=== PATIENT | female | born 1985 | race Caucasian/White ===

== ENCOUNTER 2018-01-26 07:30 | Inpatient (IN) | payer OTHER ==
[2018-01-26 08:32] LABS: HEMATOCRIT 36.1 % (36.0-47.0); MEAN CORPUSCULAR HEMOGLOBIN 30.8 pg (27.0-33.0); MEAN CORPUSCULAR HGB CONC 33.2 g/dl (32.0-36.5); MEAN CORPUSCULAR VOLUME 92.8 fl (80.0-96.0); PLATELET COUNT, AUTOMATED 193 10^3/uL (150-450); RED BLOOD COUNT 3.89 10^6/uL (4.00-5.40); RED CELL DISTRIBUTION WIDTH 13.7 % (11.5-14.5); WHITE BLOOD COUNT 13.4 10^3/uL (4.0-10.0)
[2018-01-26] MEDS: LACTATED RINGER'S 1000 ML IV (09:15)
[2018-01-26] MEDS: LR 1,000 ML IV (09:15)
[2018-01-26] MEDS: BICITRA 30ML SOLN UDC PO (10:39)
[2018-01-26] MEDS ORDERED: MORPHINE PRES-FREE INJ 10 MG/10 ML VIAL (J2274) As Ordered (11:43)
[2018-01-26] MEDS ORDERED: OXYTOCIN INJ 10 UNITS/ML VIAL (J2590) As Ordered (11:43)
[2018-01-26] MEDS ORDERED: PHENYLephrine HCL 500 MCG/5 ML (100MCG/ML) SYRINGE (J2370) As Ordered (11:45)
[2018-01-26] MEDS ORDERED: KETOROLAC 60 MG/2 ML VIAL (J1885) As Ordered (12:04)
[2018-01-26] MEDS ORDERED: MEASLES,MUMPS,RUBELLA VACCINE INJ (MMR-II) (90707) SC (12:45)
[2018-01-26] MEDS ORDERED: RHOGAM 300 MCG (1500 IU) INJ (J2790) IM ×2 (12:45→16:30)
[2018-01-26] MEDS ORDERED: ONDANSETRON 4MG/2ML VIAL (J2405) IV ×2 (12:45→13:15)
[2018-01-26] MEDS ORDERED: NALBUPHINE HCL 10 MG/ML AMP (J2300) IV (13:15)
[2018-01-26] MEDS ORDERED: fentaNYL 100 MCG/2 ML INJECTION (J3010) IV (13:15)
[2018-01-26] MEDS: PRENATAL VITAMINS CHEWABLE TABLET PO (15:27)
[2018-01-26] MEDS: KETOROLAC 30 MG/ML VIAL (J1885) IV (18:11)
[2018-01-26] MEDS: PERCOCET 5MG/325MG TAB PO (21:58)
[2018-01-27] MEDS: KETOROLAC 30 MG/ML VIAL (J1885) IV ×2 (00:31→05:54)
[2018-01-27] MEDS: PERCOCET 5MG/325MG TAB PO ×5 (02:40→22:13)
[2018-01-27 07:11] LABS: HEMATOCRIT 30.2 % (36.0-47.0); HEMOGLOBIN 10.1 g/dl (12.0-15.5); MEAN CORPUSCULAR HEMOGLOBIN 30.9 pg (27.0-33.0); MEAN CORPUSCULAR HGB CONC 33.4 g/dl (32.0-36.5); MEAN CORPUSCULAR VOLUME 92.4 fl (80.0-96.0); PLATELET COUNT, AUTOMATED 146 10^3/uL (150-450); RED BLOOD COUNT 3.27 10^6/uL (4.00-5.40); RED CELL DISTRIBUTION WIDTH 13.7 % (11.5-14.5); WHITE BLOOD COUNT 12.2 10^3/uL (4.0-10.0)
[2018-01-27] MEDS: PRENATAL VITAMINS CHEWABLE TABLET PO (09:50)
[2018-01-27] MEDS: IBUPROFEN 800 MG TAB PO ×2 (13:59→22:13)
[2018-01-27] MEDS: DOCUSATE SODIUM 100 MG CAP PO (20:26)
[2018-01-28] MEDS: PERCOCET 5MG/325MG TAB PO ×2 (03:12→11:16)
[2018-01-28] MEDS: IBUPROFEN 800 MG TAB PO (05:11)
[2018-01-28] MEDS: PRENATAL VITAMINS CHEWABLE TABLET PO (11:14)
== END 2018-01-28 14:41 | disposition home or self-care (01) | DRG 766 ==
LOC: M LDI 07:30 → M OBS 14:31
PROVIDERS: Obstetrics & Gynecology
PROC: 10D00Z1 Extraction of Products of Conception, Low, Open Approach (ICD-10-PCS; principal; 2018-01-26 10:30)
PROC: 0UB70ZZ Excision of Bilateral Fallopian Tubes, Open Approach (ICD-10-PCS; 2018-01-26 10:30)
DX: O34.211 Maternal care for low transverse scar from previous cesarean delivery (principal); Z3A.39 39 weeks gestation of pregnancy; Z30.2 Encounter for sterilization; Z37.0 Single live birth

== ENCOUNTER → 2018-03-04 | Outpatient (REF) | payer OTHER | LOC: M SFHCLERA 19:34 | DX: R30.0 Dysuria (principal) | CPT/HCPCS: 87086 ==

== ENCOUNTER → 2018-03-07 | Outpatient (REF) | payer OTHER ==
[2018-03-08 14:13] LABS: Lyme Disease IgG/IgM Antibodie <0.91 ISR (0.00-0.90); Lyme Disease IgM Ab Quantitati <0.80 index (0.00-0.79)
== END ==
LOC: M SFHCLERA 09:51
DX: R21 Rash and other nonspecific skin eruption (principal)
CPT/HCPCS: 86617